=== PATIENT | male | born 1955 | race Caucasian/White ===

== ENCOUNTER → 2017-12-19 14:52 | Outpatient (CLI) | payer OTHER, SELFPAY ==
--- NOTE | 2017-12-19 15:21 | CT_ITS ---
HISTORY: STENOSIS TECHNIQUE: Routine carotid CT angiogram protocol was performed without and with IV contrast. Nascet criteria using the distal ICAs for comparison were used for evaluation of stenoses. 3D reconstructions were reviewed. A radiation dose optimization technique was used for this scan. IV Contrast dosage and agent: 75 cc [id number]-[id number] contrast. COMPARISON: None FINDINGS: Right carotid system: The right subclavian artery and proximal CCA are patent. Short length mixed plaque of the ICA origin with 30% luminal narrowing. The right external carotid artery remains patent. The right vertebral artery is patent and codominant with the left side. Left carotid system: The left subclavian artery is patent. The origin of the left common carotid artery is not visualized. Mixed plaque of the common carotid bifurcation and proximal ICA extending over a 1.5 cm length. The ICA origin shows a high-grade 90% stenosis with short length string sign. No poststenotic dilatation. Short length high-grade stenosis of the left ECA origin. The left vertebral artery is patent and is codominant with the right side. Miscellaneous: Bilateral maxillary sinusitis with mucosal thickening, worse on the left. CT/CTA Neck W/WO Contrast IMPRESSION: 1. Right ICA 30% short length stenosis at its origin. 2. Left ICA short length, 90% stenosis with string sign at its origin. 3. Bilateral patency of the vertebral arteries. 4. Incidental note of bilateral maxillary sinusitis, worse on the left. Individualized dose optimization techniques were used for this CT. at 0444 Reported and signed by: Catrachito Ascencio MD Electronically Signed: Catrachito Ascencio, at 4:42 EST Tel , Service support ,
[2017-12-19 15:51] LABS: CREATININE FINGERSTICK 1.3 mg/dL (0.70-1.30); EGFR FINGERSTICK > 60.0000 mL/min (>60)
== END ==
LOC: CT 15:00
PROVIDERS: Referring Provider Surgery Vascular Surgery; Visit Provider Surgery Vascular Surgery
DX: Z01.812 Encounter for preprocedural laboratory examination (principal); I65.23 Occlusion and stenosis of bilateral carotid arteries
CPT/HCPCS: 70498; Q9967